=== PATIENT | male | born 1965 | race Caucasian/White ===

== ENCOUNTER 2019-06-29 18:19 | Emergency (ER) | payer OTHER ==
[~2019-06-29] VITALS: Ht 182.9 cm; Wt 109.8 kg
--- NOTE | ~2019-06-29 | EKG ---
[place] [address] ELECTROCARDIOGRAM REPORT Name: PRESTON NIELSEN Room: [facility]#: [id number] Admission: 06/29/19 Attend Phys: Discharge: 06/29/19 Date of : 67 Date of Service: 06/29/191912 Report #: [id number] THIS REPORT FOR: cc: Jyoti Murphy Linda J. DO Epiphany, Epiphany MD ~ THIS REPORT FOR: //name// [facility] ED Test Date: 2019-06-29 Test Time: 19:13:45 Pat Name: PRESTON NIELSEN Department: Room: Gender: M Mortgage Loan Specialist: : 1965 Requested By: Pau Louis Order Number: [id number] MD: Measurements Intervals [place] Rate: 91 P: 57 ND: 142 QRS: 112 QRSD: 124 T: 21 QT: 362 QTc: 446 Interpretive Statements Sinus rhythm Nonspecific intraventricular conduction delay No previous ECG available for comparison [email or web address] By: 12 12 Epiphany Epiphany, /EPI
[2019-06-29] MEDS ORDERED: AUGMENTIN 875-1 EACH PO (18:34)
[2019-06-29 19:18] LABS: ABSOLUTE EOSINOPHILS 0.3 thou/uL (0.0-0.7); ABSOLUTE LYMPHOCYTES 1.4 thou/uL (0.8-5.3); ABSOLUTE MONOCYTES 1.1 thou/uL (0.0-1.2); ABSOLUTE NEUTROPHILS 3.6 thou/uL (1.6-8.1); BASOPHILS 0.7 %; EOSINOPHILS 5.2 %; HEMATOCRIT 44.7 % (42.0-52.0); HEMOGLOBIN 15.9 gm/dL (14.0-18.0); MCH 32.6 pg (26.0-34.0); MCHC 35.5 g/dL (28.0-37.0); MCV 91.7 fL (80.0-100.0); MONOCYTES 17.2 %; MPV 7.2 fl. (7.2-11.1); NUCLEATED RBCS 0 /100WBC; PLATELET COUNT* 191 thou/uL (150-400); POLYS 55.9 %; RBC 4.87 mil/uL (4.50-6.00); RDW-CV 13.3 % (10.5-14.5); WBC 6.5 thou/uL (4.0-11.0)
[2019-06-29 19:26] LABS: CALCIUM 8.1 mg/dL (8.5-10.1); CREATININE 1.2 mg/dL (0.6-1.3)
[2019-06-29 19:36] LABS: ALBUMIN 3.2 g/dL (3.4-5.0); TOTAL BILIRUBIN 0.5 mg/dL (<0.1-1.0); TOTAL PROTEIN 7.7 g/dL (6.4-8.2)
[2019-06-29 19:46] LABS: APTT 28.7 Seconds (25.0-31.3); INR 1.1; PROTIME 10.9 Seconds (9.20-11.50)
[2019-06-29 20:37] LABS: INFLUENZA A ANTIGEN Negative (Negative); INFLUENZA B ANTIGEN Negative (Negative)
[2019-06-29] MEDS ORDERED: TESSALON PERLE100 MG PO (20:41)
[2019-06-29] MEDS ORDERED: PREDNISONE 10 M10 MG PO (20:41)
[2019-06-29] MEDS ORDERED: VENTOLIN HFA 1818 GM INH (20:41)
[2019-06-29 20:59] VITALS: BP 134/85
== END 2019-06-29 21:01 | disposition home or self-care (01) ==
LOC: M.ERS 18:19
PROVIDERS: Nurse Practitioner Family
DX: J20.9 Acute bronchitis, unspecified (principal); Z88.6 Allergy status to analgesic agent

== ENCOUNTER 2019-09-17 22:33 | Emergency (ER) | payer OTHER ==
[~2019-09-17] VITALS: Ht 182.9 cm; Wt 108.9 kg
[~2019-09-17 22:33] MED LIST: AUGMENTIN 875-1 EACH PO; PREDNISONE 10 M10 MG PO; TESSALON PERLE100 MG PO; VENTOLIN HFA 1818 GM INH
[2019-09-17 23:14] VITALS: BP 121/91
== END 2019-09-17 23:23 | disposition home or self-care (01) ==
LOC: M.ERS 22:33
DX: S90.822A Blister (nonthermal), left foot, initial encounter (principal); S90.821A Blister (nonthermal), right foot, initial encounter; M54.5 Low back pain; Z88.6 Allergy status to analgesic agent; X58.XXXA Exposure to other specified factors, initial encounter; Y93.89 Activity, other specified; Y92.89 Other specified places as the place of occurrence of the external cause; Y99.8 Other external cause status

== ENCOUNTER 2019-10-08 18:16 | Emergency (ER) | payer OTHER ==
[~2019-10-08] VITALS: Ht 182.9 cm; Wt 108.0 kg
[2019-10-08 18:37] LABS: ABSOLUTE BASOPHILS 0.1 thou/uL (0.0-0.2); ABSOLUTE EOSINOPHILS 0.3 thou/uL (0.0-0.7); ABSOLUTE LYMPHOCYTES 2.4 thou/uL (0.8-5.3); ABSOLUTE MONOCYTES 0.9 thou/uL (0.0-1.2); ABSOLUTE NEUTROPHILS 5.1 thou/uL (1.6-8.1); EOSINOPHILS 3.8 %; HEMOGLOBIN 16.2 gm/dL (14.0-18.0); LYMPHOCYTES 27.4 %; MCH 32.6 pg (26.0-34.0); MCHC 35.2 g/dL (28.0-37.0); MCV 92.5 fL (80.0-100.0); MONOCYTES 10.6 %; MPV 7.5 fl. (7.2-11.1); NUCLEATED RBCS 0 /100WBC; PLATELET COUNT* 232 thou/uL (150-400); POLYS 57.2 %; RBC 4.97 mil/uL (4.50-6.00); RDW-CV 13.3 % (10.5-14.5); WBC 8.8 thou/uL (4.0-11.0)
[2019-10-08 18:54] LABS: CALCIUM 8.7 mg/dL (8.5-10.1); CREATININE 1.5 mg/dL (0.6-1.3)
[2019-10-08 18:58] LABS: ALBUMIN 3.5 g/dL (3.4-5.0); TOTAL BILIRUBIN 0.5 mg/dL (<0.1-1.0)
[2019-10-08 21:06] LABS: URINE BILIRUBIN NEGATIVE (Negative); URINE BLOOD 1+ (Negative); URINE CLARITY CLEAR; URINE COLOR YELLOW; URINE GLUCOSE-RANDOM NEGATIVE (Negative); URINE KETONES NEGATIVE (Negative); URINE LEUKOCYTES-REFLEX NEGATIVE (Negative); URINE NITRITE-REFLEX NEGATIVE (Negative); URINE PROTEIN NEGATIVE (Negative)
[2019-10-08 21:14] LABS: BACTERIA-REFLEX 1-9 Few /HPF (None Seen); CASTS None Seen /LPF (None Seen); CRYSTALS None Seen /LPF (None Seen); SQUAMOUS 0-3 Few /LPF (0-3); URINE RBC 0-2 Rare /HPF (0-2); URINE WBC-REFLEX 0-5 Rare /HPF (0-5)
[2019-10-08 21:19] LABS: AMP/METHAMP Negative (Negative); BARBITURATES Negative (Negative); BENZODIAZEPINES Negative (Negative); COCAINE Negative (Negative); METHADONE Negative (Negative); OPIATES Negative (Negative); PCP Negative (Negative); THC Negative (Negative)
[2019-10-08] MEDS ORDERED: COMPAZINE10 M2 PO (21:20)
[2019-10-08 21:46] VITALS: BP 126/78
--- NOTE | 2019-10-09 17:04 | EKG ---
[place] [address] ELECTROCARDIOGRAM REPORT Name: PRESTON NIELSEN Room: [facility]#: [id number] Admission: 10/08/19 Attend Phys: Discharge: 10/08/19 Date of : 67 Date of Service: 10/08/19 182 Report #: [id number] THIS REPORT FOR: //name// [facility] ED Test Date: 2019-10-08 Test Time: 18:21:16 Pat Name: PRESTON NIELSEN Department: Room: Gender: Water Plumber: : 1965 Requested By: Candy Lance Order Number: [id number] MD: Rito Butts Measurements Intervals [place] Rate: 78 P: 41 [place]: 163 QRS: 66 QRSD: 133 T: 13 QT: 393 QTc: 448 Interpretive Statements Sinus rhythm Consider left atrial enlargement IVCD, consider atypical RBBB Compared to ECG 06/29/2019 19:13:45 No significant changes Electronically Signed On 10-09-2019 17:02:25 CDT by Rito Butts [email or web address] <ELECTRONICALLY SIGNED> By: Rito Butts MD, [facility] 10/09/19 1702 1821 182 Rito Butts MD, [facility] /EPI
== END 2019-10-08 21:46 | disposition home or self-care (01) ==
LOC: M.ERS 18:16
PROVIDERS: Personal Emergency Response Attendant; Physician Assistant
DX: R11.2 Nausea with vomiting, unspecified (principal); Z88.5 Allergy status to narcotic agent